=== PATIENT | male | born 1955 | race Two or more races ===

== ENCOUNTER 2024-08-20 12:17 | Emergency (ER) | payer OTHER ==
[~2024-08-20] VITALS: Ht 175.3 cm; Wt 94.8 kg
[2024-08-20] MEDS ORDERED: ZOCOR40 MG PO (12:53)
[2024-08-20] MEDS ORDERED: CARVEDILOL12.5 MG PO (12:53)
[2024-08-20] MEDS ORDERED: COZAAR25 MG PO (12:54)
[2024-08-20] MEDS ORDERED: PLAVIX75 MG PO (12:54)
[2024-08-20] MEDS ORDERED: NORVASC2.5 M1 PO (12:55)
[2024-08-20] MEDS ORDERED: ELIQUIS5 MG PO (12:55)
[2024-08-20] MEDS ORDERED: ASPIRIN 325 MG TABLET.EC PO STA (13:14)
[2024-08-20 13:35] LABS: ABG PH 7.431 (7.35-7.45); ABG PO2 76.8 mmHg (80-100); ABG pCO2 35.4 mmHg (35-45); BASE EXCESS -0.7 mmol/l; SaO2 95.6 %; Tco2 24.1 mmol/l
[2024-08-20 13:59] LABS: INR 1.19; PARTIAL THROMBOPLASTIN TIME 34.1 SECONDS (22.0-34.0); PROTHROMBIN TIME 12.8 SECONDS (9.0-11.5)
[2024-08-20 14:01] LABS: HEMATOCRIT 41.2 % (39.0-48.0); HEMOGLOBIN 14.2 g/dL (13-16.00); MEAN CELL VOLUME 92.9 fL (80.0-100.00); MEAN CORPUSCULAR HEMOGLOBIN 32.1 pg (27.00-32.0); MEAN CORPUSCULAR HGB CONC 34.6 g/dl (32.0-36.0); PLATELET COUNT 218 K/uL (150-450); RED BLOOD COUNT 4.44 M/uL (4.00-6.00); RED CELL DISTRIBUTION WIDTH 13.2 % (11.5-14.5)
[2024-08-20 14:12] LABS: allen test SATISFACTORY; o2 21 %; puncture site RADIAL RIGHT
[2024-08-20 14:18] LABS: CREATININE SERUM 0.64 mg/dL (0.70-1.30); GFR 124.74; POTASSIUM 3.88 mEq/L (3.5-5.1)
== END 2024-08-20 18:05 | disposition home or self-care (01) ==
LOC: ER 12:18
PROVIDERS: Emergency Medicine
DX: R06.02 Shortness of breath (principal); I10 Essential (primary) hypertension; Z91.013 Allergy to seafood